=== PATIENT | female | born 1960 | race Two or more races ===

== ENCOUNTER 2016-06-16 16:30 | Emergency (ER) | payer MEDICARE, MEDICAID ==
[~2016-06-16] VITALS: Ht 157.5 cm; Wt 77.6 kg
[2016-06-16 16:30] VITALS: BP 130/69
[~2016-06-16 16:30] MED LIST: ASPI81TA2 PO; CARV3.122 PO; GLIP5TAB13 PO; LISI10TA5 PO; PREG25CA PO; TRAM50TA2 PO
[2016-06-16] MEDS ORDERED: TDAP [DIPH/PERTUSSIS/TET] 0.5 ML VIAL IM ONE ×2 (17:30→17:39)
== END 2016-06-16 18:00 | disposition home or self-care (01) ==
LOC: ER 16:35
DX: S61.011A Laceration without foreign body of right thumb without damage to nail, initial encounter (principal); W26.0XXA Contact with knife, initial encounter; Y93.89 Activity, other specified; Y92.89 Other specified places as the place of occurrence of the external cause; Y99.8 Other external cause status; I10 Essential (primary) hypertension; J45.909 Unspecified asthma, uncomplicated; E11.9 Type 2 diabetes mellitus without complications; Z90.49 Acquired absence of other specified parts of digestive tract; Z90.710 Acquired absence of both cervix and uterus; F17.200 Nicotine dependence, unspecified, uncomplicated; Z88.6 Allergy status to analgesic agent
CPT/HCPCS: 12001; 90471; 90715; 99283; A4606; A6402; Z7610

== ENCOUNTER 2017-03-07 15:56 | Emergency (ER) | payer MEDICARE, MEDICAID ==
[~2017-03-07] VITALS: Ht 160 cm; Wt 81.2 kg
[2017-03-07 16:07] VITALS: BP 129/70
[2017-03-07] MEDS ORDERED: ACETAMINOPHEN ES 500 MG TABLET ONE (16:54)
[2017-03-07] MEDS ORDERED: LIDOCAINE HCL/PF 1% 30 ML SDV ONE (16:56)
[2017-03-07] MEDS ORDERED: LIDOCAINE HCL/PF 1% 30 ML VIAL TP ONE (17:00)
[2017-03-07] MEDS ORDERED: ACETAMINOPHEN ES 500 MG TABLET PO ONE (17:00)
[2017-03-07] MEDS ORDERED: INSULIN REGULAR, HUMAN 100 UNIT/ML 10 ML VIAL ONE (17:58)
[2017-03-07] MEDS ORDERED: INSULIN REGULAR, HUMAN 100 UNIT/ML 10 ML VIAL SQ ONE (18:00)
== END 2017-03-07 18:45 | disposition home or self-care (01) ==
LOC: ER 15:59
DX: L60.0 Ingrowing nail (principal); I10 Essential (primary) hypertension; E11.9 Type 2 diabetes mellitus without complications; J45.909 Unspecified asthma, uncomplicated; K74.60 Unspecified cirrhosis of liver; Z79.82 Long term (current) use of aspirin; Z90.710 Acquired absence of both cervix and uterus; Z90.49 Acquired absence of other specified parts of digestive tract
CPT/HCPCS: 11730; 82962; 96372; 99283; A4606; A6402; A6403 ×2; J1815; J3490 ×2; Z7610

== ENCOUNTER 2017-05-31 14:20 | Emergency (ER) | payer MEDICARE, MEDICAID ==
[~2017-05-31] VITALS: Ht 157.5 cm; Wt 82.6 kg
[~2017-05-31 14:20] MED LIST changes: +ASPI-1169 PO; -ASPI81TA2 PO
--- NOTE | 2017-05-31 14:32 | NUR ---
PT RREC'D TO ER C/O COUGH FOR 2 WEEKS WAS SEEN BY OWN MD VÍCTOR HUTSON . STILL COUGHING UIP BROWN .AWAITING EVALUATION BY ER PROVIDER.CHEST XRAY ORDERED VSS
--- NOTE | 2017-05-31 15:19 | NUR ---
PT. VERBALIZED UNDERSTANDING OF AFTERCARE INSTRUCTIONS.
[2017-05-31 15:20] VITALS: BP 114/64
== END 2017-05-31 15:21 | disposition home or self-care (01) ==
LOC: ER 14:22
DX: R05 Cough (principal); E11.9 Type 2 diabetes mellitus without complications; I10 Essential (primary) hypertension; J45.909 Unspecified asthma, uncomplicated; K74.60 Unspecified cirrhosis of liver; F17.200 Nicotine dependence, unspecified, uncomplicated; Z79.82 Long term (current) use of aspirin; Z88.8 Allergy status to other drugs, medicaments and biological substances; Z90.710 Acquired absence of both cervix and uterus; Z90.49 Acquired absence of other specified parts of digestive tract
CPT/HCPCS: 71045-TC; 82962-TC; A4606; Z7610

== ENCOUNTER 2018-06-20 11:46 | Emergency (ER) | payer MEDICARE, MEDICAID ==
[~2018-06-20] VITALS: Ht 162.6 cm; Wt 75.7 kg
[2018-06-20 11:59] VITALS: BP 156/77
[2018-06-20] MEDS ORDERED: KETOROLAC TROMETHAMINE INJ 60 MG/2 ML VIAL IM ONE (12:30)
[2018-06-20] MEDS ORDERED: KETOROLAC TROMETHAMINE 15 MG/ML VIAL ONE (12:33)
== END 2018-06-20 12:41 | disposition home or self-care (01) ==
LOC: ER 11:47
DX: K08.89 Other specified disorders of teeth and supporting structures (principal); R45.86 Emotional lability; I10 Essential (primary) hypertension; E11.9 Type 2 diabetes mellitus without complications; F17.200 Nicotine dependence, unspecified, uncomplicated; J45.909 Unspecified asthma, uncomplicated; Z90.49 Acquired absence of other specified parts of digestive tract; Z90.710 Acquired absence of both cervix and uterus; Z88.8 Allergy status to other drugs, medicaments and biological substances; Z88.5 Allergy status to narcotic agent; Z79.899 Other long term (current) drug therapy; Z79.82 Long term (current) use of aspirin
CPT/HCPCS: J1885

== ENCOUNTER 2018-09-07 05:11 | Emergency (ER) | payer MEDICARE, MEDICAID ==
[~2018-09-07] VITALS: Ht 165.1 cm; Wt 87.5 kg
--- NOTE | 2018-09-07 05:30 | NUR ---
PT TO ER BED 10. BIB SELF WITH AT BEDSIDE. AAOX4. AMBULATORY. NO RESP DISTRESS, BREATHING IS EVEN AND UNLABORED. PT CAME IN WITH COMPLAINT OF R EAR PAIN 10/ AN HOUR AGO. PT WAS BLEEDING COMING OUT OF HER RIGHT EAR. AWAITING MD FOR EVAL.
[2018-09-07] MEDS ORDERED: oxyCODONE/APAP (5/325 MG) 1 UDTAB TABLET ONE (05:39)
[2018-09-07] MEDS ORDERED: oxyCODONE/APAP (5/325 MG) 1 UDTAB TABLET PO ONE (06:00)
--- NOTE | 2018-09-07 06:36 | NUR ---
Patient discharged to home in stable condition. Written and verbal after care instructions given. Patient verbalizes understanding of instruction.
[2018-09-07 06:38] VITALS: BP 155/85
== END 2018-09-07 06:39 | disposition home or self-care (01) ==
LOC: ER 05:13
DX: H72.91 Unspecified perforation of tympanic membrane, right ear (principal); E11.9 Type 2 diabetes mellitus without complications; I10 Essential (primary) hypertension; J45.909 Unspecified asthma, uncomplicated; F17.200 Nicotine dependence, unspecified, uncomplicated; Z90.710 Acquired absence of both cervix and uterus; Z90.49 Acquired absence of other specified parts of digestive tract; Z88.8 Allergy status to other drugs, medicaments and biological substances; Z79.899 Other long term (current) drug therapy; Z79.82 Long term (current) use of aspirin; Z79.84 Long term (current) use of oral hypoglycemic drugs

== ENCOUNTER 2018-10-13 20:52 | Emergency (ER) | payer MEDICARE, MEDICAID ==
[~2018-10-13] VITALS: Ht 167.6 cm; Wt 88.0 kg
[2018-10-13 21:39] VITALS: BP 162/84
--- NOTE | 2018-10-13 23:50 | NUR ---
Patient discharged to home in stable condition. Written and verbal after care instructions given. Patient verbalizes understanding of instruction. Pt ambulatory with a steady gait
== END 2018-10-13 23:56 | disposition home or self-care (01) ==
LOC: ER 20:56
DX: J20.9 Acute bronchitis, unspecified (principal); J45.909 Unspecified asthma, uncomplicated; I10 Essential (primary) hypertension; E11.9 Type 2 diabetes mellitus without complications; F17.200 Nicotine dependence, unspecified, uncomplicated; Z90.710 Acquired absence of both cervix and uterus; Z90.49 Acquired absence of other specified parts of digestive tract; Z79.82 Long term (current) use of aspirin; Z88.5 Allergy status to narcotic agent

== ENCOUNTER 2019-06-01 01:30 | Inpatient (IN) | payer MEDICARE, MEDICAID ==
[~2019-06-01] VITALS: Ht 167.6 cm; Wt 40.4 kg
[2019-06-01] MEDS ORDERED: ONDANSETRON HCL/PF 4 MG/2 ML VIAL ONE (01:59)
[2019-06-01] MEDS ORDERED: LABETALOL HCL IV 100MG VIAL ONE (01:59)
[2019-06-01] MEDS ORDERED: ONDANSETRON HCL/PF 4 MG/2 ML VIAL IVP ONE (02:00)
[2019-06-01] MEDS ORDERED: LABETALOL 20 MG/4 ML VIAL IV ONE (02:00)
[2019-06-01] MEDS ORDERED: MORPHINE SULFATE INJ 4 MG/ML DISP.SYRIN ONE (02:00)
[2019-06-01] MEDS ORDERED: MORPHINE SULFATE INJ 2 MG/ML DISP.SYRIN IV ONE (02:00)
--- NOTE | 2019-06-01 02:07 | NUR ---
blood drawn and sent with pool finisher to lab for testing
--- NOTE | 2019-06-01 02:17 | NUR ---
taken to ct
[2019-06-01 02:22] LABS: BASOPHILS # (AUTO) 0.1 /CMM (0.0-0.2); BASOPHILS % (AUTO) 0.9 % (0.0-2.0); EOSINOPHILS % (AUTO) 1.9 % (0.0-6.0); HEMATOCRIT 37 % (33-45); LYMPHOCYTES # (AUTO) 1.8 /CMM (0.8-4.8); LYMPHOCYTES % (AUTO) 27.5 % (20.0-44.0); MEAN CORPUSCULAR HGB CONC 35 g/dl (31.0-36.0); MEAN CORPUSCULAR VOLUME 98 fL (82-100); MONOCYTES # (AUTO) 0.7 /CMM (0.1-1.30); MONOCYTES % (AUTO) 10.8 % (2.0-12.0); NEUTROPHILS # (AUTO) 3.9 /CMM (1.8-8.9); NEUTROPHILS % (AUTO) 58.9 % (43.0-81.0); PLATELET COUNT (AUTO) 106 /CMM (150-450); RED BLOOD CELL COUNT(AUTO) 3.76 MIL/uL (4.0-5.2); WHITE BLOOD COUNT (AUTO) 6.7 K/uL (4.3-11.0)
--- NOTE | 2019-06-01 02:22 | NUR ---
patient is bib c/o headache 1X week. aaox4. left eye is bloodshot. no sob. breathing evenly and unlabored. connected to monitor.
[2019-06-01 02:24] LABS: CALCIUM, SERUM 9.1 mg/dL (8.5-10.1); CREATININE 0.7 mg/dL (0.6-1.3); POTASSIUM 3.9 mmol/L (3.5-5.1)
--- NOTE | 2019-06-01 02:24 | NUR ---
returned from ct.
[2019-06-01 02:29] LABS: ALBUMIN 3.1 g/dL (3.4-5.0); BILIRUBIN,DIRECT 0.4 mg/dL (0.0-0.2); BILIRUBIN,TOTAL 1.7 mg/dL (0.2-1.0); TOTAL PROTEIN, SERUM 6.3 g/dL (6.4-8.2)
--- NOTE | 2019-06-01 02:38 | NUR ---
Pt is in the car sleeping waiting for her .
[2019-06-01] MEDS ORDERED: HYDROMORPHONE 1 MG/1 ML DISP.SYRIN ONE ×2 (02:54→04:00)
[2019-06-01] MEDS ORDERED: HYDROMORPHONE INJ 0.5 MG/0.5 ML SYRINGE IV ONE (03:00)
[2019-06-01] MEDS ORDERED: HYDROMORPHONE 1 MG/1 ML DISP.SYRIN IV ONE (04:00)
--- NOTE | 2019-06-01 04:57 | NUR ---
patient resting comfortably in bed 9. not in any distress. connected to the monitor. at bedside. call light within reach.
--- NOTE | 2019-06-01 05:59 | NUR ---
PANEL PAGED PER ER MD ORDER.
--- NOTE | 2019-06-01 06:19 | NUR ---
LINDSEY NEGRO TALKING TO MARLENY LANZA ERGARDING PT ADMISSION.
--- NOTE | 2019-06-01 06:55 | NUR ---
PATIENT SLEEPING COMFORTABLY IN BED 9. EASILY AROUSED THROUGH TACTILE AND VERBAL STIMULI. NOT IN ANY DISTRESS. BREATHING EVENLY AND UNLABORED. CONNECTED TO MONITOR.
[2019-06-01] MEDS ORDERED: MAG HYDROX/AL HYDROX/SIMETH 30 ML UDC PO PRN (07:00)
[2019-06-01] MEDS ORDERED: ONDANSETRON HCL/PF 4 MG/2 ML VIAL IVP PRN (07:00)
[2019-06-01] MEDS ORDERED: ACETAMINOPHEN 325 MG TABLET PO PRN (07:00)
[2019-06-01] MEDS ORDERED: Z GUARD REMEDY 2 OZ OINT TP PRN (07:00)
[2019-06-01] MEDS ORDERED: DEXTROSE 50%-WATER 50 ML DISP.SYRIN IV PRN (07:00)
[2019-06-01] MEDS ORDERED: MAGNESIUM HYDROXIDE 30 ML UDC PO PRN (07:00)
[2019-06-01] MEDS ORDERED: HYDROCODONE/APAP 5/325MG 1 EACH TABLET PO PRN (07:00)
--- NOTE | 2019-06-01 07:20 | NUR ---
REPORT GIVEN TO EILEEN KENYON FOR KRISTYN.
--- NOTE | 2019-06-01 07:49 | NUR ---
REPORT GIVEN TO SUGEY KENYON FOR KRISTYN.
[2019-06-01 08:00] VITALS: BP 144/88
--- NOTE | 2019-06-01 08:02 | NUR ---
Assumed care report given by Maria Isabel per report report given to Jeremy to bring patient to 119 now ,brynn maldonado monitor RN an CUT LACE MACHINE OPERATOR aware patient non distress
[2019-06-01] MEDS: BLOOD SUGAR DIAGNOSTIC 1 EACH STRIP IN SCH ×4 (08:56→21:19)
--- NOTE | 2019-06-01 10:00 | NUR ---
SENIOR QA ANALYST NOTES - OPENING . PATIENT A/O X4 COOPERATIVE WITH CARE. PATIENT IS IN ROOM AIR TOLERATING ROOM AIR AT 97% PATIENT SHOWS NO SIGNS OF SOB, NO ACUTE RESPIRATORY DISTRESS. PATIENT DOES COMPLAIN OF HEADACHE. DURING NURO CHECKS PATIENT LEFT SIDE IS WEAK. UNABLE TO HOLD UP ARM FOR 10 SECS. WELL LEG UNABLE TO LEFT LEG UP .PATIENT CANNOT FEEL TOUCH ON THE LEFT SIDE OF BODY. SKIN IS IN TACT. RFA 20# R HAND 20# BED LOCKED LOWEST POSITION CALL LIGHT WITH IN REACH . ALL SAFETY MEASURE IMPLEMENTED PER HOSPITAL POLICY
[2019-06-01] MEDS: ASPIRIN 81 MG TAB.CHEW PO SCH (10:06)
[2019-06-01] MEDS: PREGABALIN 25 MG CAPSULE PO SCH (10:06)
[2019-06-01] MEDS: LISINOPRIL (10MG) 10 MG TABLET PO SCH (10:06)
[2019-06-01] MEDS: CARVEDILOL 3.125 MG TABLET PO SCH (10:13)
[2019-06-01] MEDS ORDERED: SUCR1ORA6 PO (11:02)
[2019-06-01] MEDS ORDERED: INSU100V7 SQ (11:02)
[2019-06-01] MEDS ORDERED: [UNRECOGNIZED DRUG - CODE] PO (11:02)
[2019-06-01] MEDS ORDERED: RIFA550T PO (11:02)
[2019-06-01] MEDS ORDERED: ZOLP5TAB8 PO (11:02)
[2019-06-01] MEDS ORDERED: LACT10SO4 PO (11:02)
[2019-06-01] MEDS ORDERED: LEVO100T9 PO (11:02)
[2019-06-01] MEDS ORDERED: PRAV20TA4 PO (11:02)
[2019-06-01] MEDS ORDERED: HYDR-4384 PO (11:03)
[2019-06-01] MEDS ORDERED: INSU100V27 SQ (11:05)
[2019-06-01] MEDS ORDERED: COLC0.6C3 PO (11:08)
[2019-06-01 12:00] VITALS: BP 139/79
[2019-06-01 16:00] VITALS: BP 139/69
--- NOTE | 2019-06-01 16:03 | NUR ---
LIFE SKILLS COORDINATOR VOLUNTEER NOTES - FAMILY PER FAMILY REQUEST - DIFFERENT NURSE .
--- NOTE | 2019-06-01 16:10 | NUR ---
EDUCATION REPORTER NOTES RECEIVED PATIENT FROM EILEEN KENYON. PATIENT A/OX 4 IN BED AWAKE. AT THE BED SIDE. NO SOB OR DISCOMFORT NOTED AT THIS TIME. CALL LIGHT WITHIN REACH BED AT THE LOWEST POSITION LOCKED.
[2019-06-01] MEDS: INSULIN REGULAR, HUMAN 100 UNIT/ML 3 ML VIAL SQ PRN ×2 (17:54→23:38)
--- NOTE | 2019-06-01 19:15 | NUR ---
RN OPENING NOTE RECEIVED PATIENT IN BED RESTING WITH HOB ELEVATED. A&O X4. BREATHING IS EVEN AND NON LABORED. NO SOB NOTED AT THIS TIME. FAMILY IS AT BEDSIDE AT THIS TIME. CALL LIGHT IS WITHIN EASY REACH. WILL CONTINUE TO MONITOR.
--- NOTE | 2019-06-01 19:30 | NUR ---
SHIPFITTERS SUPERVISOR NOTES PATIENT IN BED SITTING A/OX4 AWAKE. NO SOB OR DISCOMFORT NOTED. ALL NEEDS ATTENDED. CALL LIGHT WITHIN REACH. NO MAJOR CHANGES DURING SHIFT. BED AT THE LOWEST POSITION LOCKED. ENDORSED TO SNAKE CHARMER NURSE FOR KRISTYN.
[2019-06-01] MEDS ORDERED: ZOLPIDEM TARTRATE 5 MG TABLET PO PRN (20:30)
[2019-06-01] MEDS ORDERED: ATORVASTATIN 10 MG TABLET PO SCH (21:00)
[2019-06-01 21:39] VITALS: BP 116/58
[2019-06-01] MEDS ORDERED: INSULIN GLARGINE, 100 UNIT/ML CARTRIDGE SQ SCH (22:00)
[2019-06-02 04:00] VITALS: BP 111/50
--- NOTE | 2019-06-02 07:20 | NUR ---
MOTORBOAT MECHANIC HELPER NOTES, PATIENT IN BED AWAKE AT THIS TIME A/O X4 ABLE TO VERBALIZED NEEDS, AT ROOM AIR BREATHING EVEN AND UNLABORED, NO SOB OR DISCOMFORT NOTED, ALL NEEDS ATTENDED, BILATERAL S/R OF BED U FOR POSITIONING, CALL LIGHT WITHIN REACH, BED LOCKED. AD IN LOWEST POSITION, WILL CONTINUE TO MONITOR CLOSELY.
--- NOTE | 2019-06-02 07:20 | NUR ---
RN CLOSING NOTE PATIENT IS IN BED RESTING WITH HOB ELEVATED. IN NO APPARENT DISTRESS AT THIS TIME. A&O X4. CALL LIGHT IS WITHIN EASY REACH. ENDORSED TO AM SHIFT RN FOR CONTINUATION OF CARE.
[2019-06-02 07:25] LABS: THYROID STIMULATING HORMONE 0.916 uIU/mL (0.358-3.74)
[2019-06-02] MEDS ORDERED: LEVOTHYROXINE SODIUM 100 MCG TABLET PO SCH (07:30)
[2019-06-02 07:34] LABS: BASOPHILS % (AUTO) 0.6 % (0.0-2.0); EOSINOPHILS % (AUTO) 4.8 % (0.0-6.0); HEMATOCRIT 36 % (33-45); HEMOGLOBIN 12.5 g/dL (11.5-14.8); LYMPHOCYTES # (AUTO) 1.8 /CMM (0.8-4.8); LYMPHOCYTES % (AUTO) 33.9 % (20.0-44.0); MEAN CORPUSCULAR HGB CONC 35 g/dl (31.0-36.0); MEAN CORPUSCULAR VOLUME 98 fL (82-100); MONOCYTES # (AUTO) 0.6 /CMM (0.1-1.30); MONOCYTES % (AUTO) 11.8 % (2.0-12.0); NEUTROPHILS # (AUTO) 2.7 /CMM (1.8-8.9); NEUTROPHILS % (AUTO) 48.9 % (43.0-81.0); PLATELET COUNT (AUTO) 102 /CMM (150-450); RED BLOOD CELL COUNT(AUTO) 3.63 MIL/uL (4.0-5.2); WHITE BLOOD COUNT (AUTO) 5.4 K/uL (4.3-11.0)
[2019-06-02 07:51] LABS: CREATININE 0.6 mg/dL (0.6-1.3); MAGNESIUM 1.7 mg/dL (1.8-2.4); PHOSPHORUS 3.7 mg/dL (2.5-4.9); POTASSIUM 3.5 mmol/L (3.5-5.1)
[2019-06-02] MEDS: BLOOD SUGAR DIAGNOSTIC 1 EACH STRIP IN SCH ×2 (07:59→12:58)
[2019-06-02 08:00] VITALS: BP 137/68
[2019-06-02] MEDS: INSULIN REGULAR, HUMAN 100 UNIT/ML 3 ML VIAL SQ PRN ×2 (08:02→13:00)
[2019-06-02] MEDS: LACTULOSE 10 G/15 ML UDC (PYXIS) PO SCH ×2 (08:16→13:28)
[2019-06-02] MEDS: ASPIRIN 81 MG TAB.CHEW PO SCH (08:16)
[2019-06-02] MEDS: CARVEDILOL 3.125 MG TABLET PO SCH (08:17)
[2019-06-02 08:18] VITALS: BP 137/68
[2019-06-02] MEDS: LISINOPRIL (10MG) 10 MG TABLET PO SCH (08:18)
[2019-06-02] MEDS ORDERED: PENICILLAMINE PO SCH (09:00)
[2019-06-02] MEDS: PREGABALIN 25 MG CAPSULE PO SCH (09:00)
[2019-06-02] MEDS ORDERED: SUCRALFATE 1 G/10 ML UDC PO SCH (09:00)
[2019-06-02] MEDS ORDERED: COLCHICINE 0.6 MG TABLET PO SCH (09:00)
[2019-06-02] MEDS ORDERED: RIFAXIMIN 550 MG TABLET PO SCH (09:00)
--- NOTE | 2019-06-02 10:00 | NUR ---
RN NOTES, SEEN PATIENT AT THIS TIME BY DR ALCALA.
[2019-06-02] MEDS: Magnesium 1GM/D5W 100ML PREMIX 100 ML IV SCH ×2 (11:53→13:27)
--- NOTE | 2019-06-02 12:20 | NUR ---
RN NOTES, ENDORSED PATIENT TO KOSTAS MACIAS FOR CONTINUATION OF CARE
[2019-06-02] MEDS ORDERED: CARV3.12 PO (14:07)
--- NOTE | 2019-06-02 18:00 | NUR ---
MIS MANAGER NOTES PATIENT DISCHARGED, TRANSFERS PATIENT, IV REMOVED, BELONGINGS RETURNED. PATIENT IN STABLE CONDITION. PATIENT TRANSFERRED BY WHEELCHAIR SAFELY TO [facility].
[2019-06-03] MEDS ORDERED: PANTOPRAZOLE 40 MG TABLET.DR PO SCH (07:30)
== END 2019-06-03 00:41 | disposition home or self-care (01) | DRG 282 ==
LOC: ER 01:31 → TELE1 05:48
PROVIDERS: ADMIT Internal Medicine; ATTEND Internal Medicine
DX: I16.0 Hypertensive urgency (principal); I21.A1 Myocardial infarction type 2; J45.909 Unspecified asthma, uncomplicated; Z79.82 Long term (current) use of aspirin; E11.9 Type 2 diabetes mellitus without complications; Z79.84 Long term (current) use of oral hypoglycemic drugs; E03.9 Hypothyroidism, unspecified; M06.9 Rheumatoid arthritis, unspecified; I10 Essential (primary) hypertension; K74.60 Unspecified cirrhosis of liver; Z90.710 Acquired absence of both cervix and uterus; Z90.49 Acquired absence of other specified parts of digestive tract; Z83.3 Family history of diabetes mellitus; Z79.899 Other long term (current) drug therapy; Z88.8 Allergy status to other drugs, medicaments and biological substances; D69.59 Other secondary thrombocytopenia; E66.9 Obesity, unspecified; E83.42 Hypomagnesemia; K76.0 Fatty (change of) liver, not elsewhere classified; Z76.82 Awaiting organ transplant status
CPT/HCPCS: 36415; 70450-TC; 71045-TC; 76705-TC; 76770-TC; 80048-TC; 80061-TC; 80076-TC; 82962-TC; 83735-TC; 84100-TC; 84443-TC; 84484-TC; 85025-TC; 85730-TC; 87081-TC; 93307-TC; G0378; J1170; J1815; J2270; J2405; J3475; J3490

== ENCOUNTER 2019-06-10 10:38 | Outpatient (CLI) | payer MEDICARE, MEDICAID ==
[~2019-06-10 10:38] MED LIST changes: -ASPI-1169 PO; +CARV3.12 PO; -CARV3.122 PO; +COLC0.6C3 PO; -GLIP5TAB13 PO; +HYDR-4384 PO; +INSU100V27 SQ; +INSU100V7 SQ; +LACT10SO4 PO; +LEVO100T9 PO; +PRAV20TA4 PO; -PREG25CA PO; +RIFA550T PO; +SUCR1ORA6 PO; -TRAM50TA2 PO; +ZOLP5TAB8 PO; +[UNRECOGNIZED DRUG - CODE] PO
== END 2019-06-10 23:59 | disposition home or self-care (01) ==
LOC: MSC 10:38
PROVIDERS: ATTEND Internal Medicine
DX: I10 Essential (primary) hypertension (principal); R51 Headache; K74.60 Unspecified cirrhosis of liver; Z76.82 Awaiting organ transplant status; J45.909 Unspecified asthma, uncomplicated; Z99.81 Dependence on supplemental oxygen; E11.9 Type 2 diabetes mellitus without complications; Z79.4 Long term (current) use of insulin; M06.9 Rheumatoid arthritis, unspecified; E03.9 Hypothyroidism, unspecified; Z95.828 Presence of other vascular implants and grafts; E66.8 Other obesity; D69.59 Other secondary thrombocytopenia; Z79.899 Other long term (current) drug therapy

== ENCOUNTER 2019-08-04 11:18 | Emergency (ER) | payer MEDICARE, MEDICAID ==
[~2019-08-04] VITALS: Ht 160 cm; Wt 88.9 kg
[2019-08-04 11:25] VITALS: BP 153/68
--- NOTE | 2019-08-04 11:25 | NUR ---
URINE SPECIMEN COLLECTED AND SENT TO LAB
--- NOTE | 2019-08-04 11:28 | NUR ---
AT BEDSIDE FOR EVAL.
[2019-08-04 11:53] LABS: APPEARANCE,URINE Cloudy (CLEAR); BILIRUBIN,URINE Negative (NEGATIVE); BLOOD, URINE Large Ery/uL (NEGATIVE); COLOR,URINE Yellow (YELLOW); KETONES,URINE Negative (NEGATIVE); LEUKOCYTE ESTERASE ,URINE Large (NEGATIVE); NITRITE, URINE Positive (NEGATIVE); PH,URINE 6.5 (5.0-8.0); PROTEIN,URINE 100 mg/dl (NEGATIVE); UGLUCOSE Negative (NEGATIVE); UROBILINOGEN,URINE 0.2 EU/dL (0.2)
[2019-08-04 12:07] LABS: BACTERIA,URINE 1+ /HPF (None Seen); SQUAMOUS EPITHELIAL CELL,UR Few /HPF (None Seen)
--- NOTE | 2019-08-04 12:11 | NUR ---
Patient discharged to home in stable condition. Written and verbal after care instructions given. Patient verbalizes understanding of instruction.
== END 2019-08-04 12:12 | disposition home or self-care (01) ==
LOC: ER 11:18
DX: N39.0 Urinary tract infection, site not specified (principal); I10 Essential (primary) hypertension; J45.909 Unspecified asthma, uncomplicated; E11.9 Type 2 diabetes mellitus without complications; F17.200 Nicotine dependence, unspecified, uncomplicated; Z90.49 Acquired absence of other specified parts of digestive tract; Z98.890 Other specified postprocedural states; Z88.8 Allergy status to other drugs, medicaments and biological substances; Z79.899 Other long term (current) drug therapy; Z79.4 Long term (current) use of insulin
CPT/HCPCS: 81000-TC; 87086-TC

== ENCOUNTER 2020-07-16 02:15 | Emergency (ER) | payer MEDICARE, OTHER ==
[~2020-07-16] VITALS: Ht 160 cm; Wt 90.3 kg
[2020-07-16 02:15] VITALS: BP 128/70
[~2020-07-16 02:15] MED LIST changes: +LISI10TA29 PO; -LISI10TA5 PO
[2020-07-16] MEDS ORDERED: AMOXICILLIN TRIHYDRATE 500 MG CAPSULE PO ONE (02:30)
[2020-07-16] MEDS ORDERED: IBUPROFEN 400 MG TABLET PO ONE (02:30)
[2020-07-16] MEDS ORDERED: AMOX500C2 PO (02:31)
[2020-07-16] MEDS ORDERED: IBUP-1957 PO (02:31)
[2020-07-16] MEDS ORDERED: IBUPROFEN 400 MG TABLET ONE (02:35)
[2020-07-16] MEDS ORDERED: AMOXICILLIN TRIHYDRATE 250 MG CAPSULE ONE (02:35)
== END 2020-07-16 02:46 | disposition home or self-care (01) ==
LOC: ER 02:17
DX: H66.92 Otitis media, unspecified, left ear (principal); I10 Essential (primary) hypertension; J45.909 Unspecified asthma, uncomplicated; E11.9 Type 2 diabetes mellitus without complications; F17.200 Nicotine dependence, unspecified, uncomplicated; Z90.710 Acquired absence of both cervix and uterus; Z90.49 Acquired absence of other specified parts of digestive tract; Z88.5 Allergy status to narcotic agent; Z88.8 Allergy status to other drugs, medicaments and biological substances; Z88.6 Allergy status to analgesic agent; Z79.4 Long term (current) use of insulin; Z79.899 Other long term (current) drug therapy

== ENCOUNTER 2020-08-08 23:50 | Emergency (ER) | payer MEDICARE, OTHER ==
[~2020-08-08] VITALS: Ht 160 cm; Wt 92.5 kg
[~2020-08-08 23:50] MED LIST changes: +AMOX500C2 PO; +IBUP-1957 PO
--- NOTE | 2020-08-09 00:07 | NUR ---
BIBSELF FROM HOME C/O HIGH BG >500. TOOK LANTUS 74 AND HUMALOG 44 X1HR AGO BG 454 UPON TRIAGE, PT TO BED 10, AAOX4, DENIES SOB/CP .VSS, NOT IN ANY DISTRESS, PENDING ER PROVIDER ERVIN
[2020-08-09] MEDS ORDERED: ONDANSETRON HCL/PF 4 MG/2 ML VIAL ONE (00:29)
[2020-08-09] MEDS ORDERED: ONDANSETRON HCL/PF 4 MG/2 ML VIAL IVP ONE (00:30)
[2020-08-09] MEDS ORDERED: IV NS 0.9% 1,000 ML BAG IV ONE (00:30)
[2020-08-09] MEDS ORDERED: INSULIN REGULAR, HUMAN 100 UNIT/ML 10 ML VIAL IV ONE (00:30)
[2020-08-09] MEDS ORDERED: INSULIN REGULAR, HUMAN 100 UNIT/ML 10 ML VIAL ONE (00:31)
[2020-08-09 00:35] LABS: BILIRUBIN,URINE NEGATIVE (NEGATIVE); COLOR,URINE YELLOW (YELLOW); LEUKOCYTE ESTERASE ,URINE NEGATIVE (NEGATIVE); NITRITE, URINE NEGATIVE (NEGATIVE); PROTEIN,URINE NEGATIVE (NEGATIVE); UGLUCOSE >=1000 mg/dL (NEGATIVE); UROBILINOGEN,URINE 0.2 EU/dL (0.2)
[2020-08-09 00:36] LABS: BASOPHILS % (AUTO) 0.6 % (0.0-2.0); EOSINOPHILS % (AUTO) 0.1 % (0.0-6.0); HEMATOCRIT 39 % (33-45); HEMOGLOBIN 13.6 g/dL (11.5-14.8); LYMPHOCYTES # (AUTO) 1.2 /CMM (0.8-4.8); LYMPHOCYTES % (AUTO) 18.1 % (20.0-44.0); MEAN CORPUSCULAR HGB CONC 35 g/dl (31.0-36.0); MEAN CORPUSCULAR VOLUME 97 fL (82-100); MONOCYTES # (AUTO) 0.1 /CMM (0.1-1.30); MONOCYTES % (AUTO) 1.6 % (2.0-12.0); NEUTROPHILS # (AUTO) 5.2 /CMM (1.8-8.9); NEUTROPHILS % (AUTO) 79.6 % (43.0-81.0); PLATELET COUNT (AUTO) 158 /CMM (150-450); RED BLOOD CELL COUNT(AUTO) 4.05 MIL/uL (4.0-5.2); WHITE BLOOD COUNT (AUTO) 6.6 K/uL (4.3-11.0)
[2020-08-09 00:49] LABS: BACTERIA,URINE None seen /HPF (None Seen); RBC,URINE 0-2 /HPF (0-2); SQUAMOUS EPITHELIAL CELL,UR Few /HPF (None Seen); WBC,URINE 0-2 /HPF (0-3)
[2020-08-09 00:54] LABS: ALBUMIN 3.2 g/dL (3.4-5.0); BILIRUBIN,DIRECT 0.3 mg/dL (0.0-0.2); BILIRUBIN,TOTAL 0.9 mg/dL (0.2-1.0); CALCIUM, SERUM 8.9 mg/dL (8.5-10.1); CREATININE 0.9 mg/dL (0.6-1.3); POTASSIUM 4.2 mmol/L (3.5-5.1); TOTAL PROTEIN, SERUM 6.6 g/dL (6.4-8.2)
--- NOTE | 2020-08-09 01:09 | NUR ---
BG 460
--- NOTE | 2020-08-09 02:41 | NUR ---
PER DR PLAZA, REPEAT BG AT 0330.
--- NOTE | 2020-08-09 03:38 | NUR ---
Patient discharged to home in stable condition. Written and verbal after care instructions given. Patient verbalizes understanding of instruction. IV removed. Catheter intact and site benign. Pressure and 4x4 applied to site. No bleeding noted.
[2020-08-09 03:39] VITALS: BP 163/93
== END 2020-08-09 03:39 | disposition home or self-care (01) ==
LOC: ER 23:50
DX: E11.65 Type 2 diabetes mellitus with hyperglycemia (principal); I10 Essential (primary) hypertension; J45.909 Unspecified asthma, uncomplicated; Z71.6 Tobacco abuse counseling; Z90.710 Acquired absence of both cervix and uterus; Z90.49 Acquired absence of other specified parts of digestive tract; Z88.5 Allergy status to narcotic agent; Z88.6 Allergy status to analgesic agent; Z79.4 Long term (current) use of insulin; Z79.899 Other long term (current) drug therapy
CPT/HCPCS: 36415; 80048; 80076; 81001; 82010; 82962 ×2; 83690; 85025; 85730; 93005; 96361; 96374; 96375; 99284; 99406; J1815; J2405; J7030

== ENCOUNTER 2020-12-26 18:03 | Emergency (ER) | payer MEDICARE, OTHER ==
[~2020-12-26] VITALS: Ht 157.5 cm; Wt 90.7 kg
--- NOTE | 2020-12-26 18:35 | NUR ---
THE PATIENT BIBS WITH C/O FEVER AND NASAL CONGESTION X 3 DAYS. TOOK TYLENOL 2 HOURS AGO. IN ROOM AIR AND DENIES SOB. RESPIRATION REGULAR AND UNLABORED. NO COUGH NOTED. DENIES PAIN. WILL CONTINUE TO MONITOR THE PATIENT.
[2020-12-26 18:38] VITALS: BP 114/65
--- NOTE | 2020-12-26 19:02 | NUR ---
RADIOLOGY AT BEDSIDE FOR CHEST XRAY.
--- NOTE | 2020-12-26 19:05 | NUR ---
SWABBED FOR COVID. SPECIMEN SENT TO LAB.
[2020-12-26] MEDS ORDERED: ACET-2605 PO (19:10)
[2020-12-26] MEDS ORDERED: AMOX-430 PO (19:10)
--- NOTE | 2020-12-26 19:36 | NUR ---
pt is medically stbale for d/c per el. Filippo DALTON will call pt with her covid result. Patient discharged to home in stable condition. Rx and Written and verbal after care instructions given. Patient verbalizes understanding of instruction.
== END 2020-12-26 19:38 | disposition home or self-care (01) ==
LOC: ER 18:20
DX: J01.90 Acute sinusitis, unspecified (principal); Z20.822 Contact with and (suspected) exposure to COVID-19; E11.9 Type 2 diabetes mellitus without complications; Z79.4 Long term (current) use of insulin; I10 Essential (primary) hypertension; K74.60 Unspecified cirrhosis of liver; F17.200 Nicotine dependence, unspecified, uncomplicated; Z90.49 Acquired absence of other specified parts of digestive tract; Z90.710 Acquired absence of both cervix and uterus; J45.909 Unspecified asthma, uncomplicated
CPT/HCPCS: 71045-TC; C9803

== ENCOUNTER 2021-02-08 13:01 | Emergency (ER) | payer MEDICARE, OTHER ==
[~2021-02-08] VITALS: Ht 160 cm; Wt 92.5 kg
[~2021-02-08 13:01] MED LIST changes: +ACET-2605 PO; +AMOX-430 PO
[2021-02-08 13:06] VITALS: BP 128/76
--- NOTE | 2021-02-08 13:13 | NUR ---
THE PATIENT BIBS FOR C/O SINUS CONGESTION. IN ROOM AIR AND DENIES SOB. RESPIRATION REGULAR AND UNLABORED. DENIES PAIN. WILL CONTINUE TO MONITOR THE PATIENT.
[2021-02-08] MEDS ORDERED: AMOX500C2 PO (13:19)
--- NOTE | 2021-02-08 13:46 | NUR ---
Patient discharged to home in stable condition. Written and verbal after care instructions given. Patient verbalizes understanding of instruction.
== END 2021-02-08 13:46 | disposition home or self-care (01) ==
LOC: ER 13:26
DX: J02.9 Acute pharyngitis, unspecified (principal); I10 Essential (primary) hypertension; J45.909 Unspecified asthma, uncomplicated; E11.9 Type 2 diabetes mellitus without complications; F17.200 Nicotine dependence, unspecified, uncomplicated; Z90.710 Acquired absence of both cervix and uterus; Z90.49 Acquired absence of other specified parts of digestive tract; Z88.5 Allergy status to narcotic agent; Z88.6 Allergy status to analgesic agent; Z79.4 Long term (current) use of insulin; Z79.899 Other long term (current) drug therapy

== ENCOUNTER 2021-04-13 12:48 | Emergency (ER) | payer MEDICARE, MEDICAID ==
[~2021-04-13] VITALS: Ht 160 cm; Wt 92.5 kg
--- NOTE | 2021-04-13 13:09 | NUR ---
PT BIBSELF FROM HOME c/o cough, chills, fever x 3 days. A/OX4. TOLERATING R/A AT 99%. CONNECTED PT TO POX AND MONITOR. PT DENIES TAKING MEDS PRIOR TO ER VISIT.
--- NOTE | 2021-04-13 13:20 | NUR ---
SPECIAL INSPECTOR AT PT'S BEDSIDE
--- NOTE | 2021-04-13 13:51 | NUR ---
COVID SWAB DONE AND SENT TO THE LAB
[2021-04-13] MEDS ORDERED: AZIT250T PO (14:15)
[2021-04-13 14:58] VITALS: BP 116/76
--- NOTE | 2021-04-13 14:58 | NUR ---
Patient discharged to home in stable condition. RX Written and verbal after care instructions given. Patient verbalizes understanding of instruction. PT ambulatory with a steady gait.
== END 2021-04-13 14:59 | disposition home or self-care (01) ==
LOC: ER 13:09
DX: U07.1 COVID-19 (principal); J20.8 Acute bronchitis due to other specified organisms; J45.909 Unspecified asthma, uncomplicated; I10 Essential (primary) hypertension; Z90.49 Acquired absence of other specified parts of digestive tract; Z90.710 Acquired absence of both cervix and uterus; E11.9 Type 2 diabetes mellitus without complications; Z79.4 Long term (current) use of insulin; F17.200 Nicotine dependence, unspecified, uncomplicated
CPT/HCPCS: 71045-TC; C9803

== ENCOUNTER 2021-05-10 05:58 | Emergency (ER) | payer MEDICARE, OTHER ==
[~2021-05-10] VITALS: Ht 160 cm; Wt 92.5 kg
[~2021-05-10 05:58] MED LIST changes: +AZIT250T PO
--- NOTE | 2021-05-10 06:15 | NUR ---
BIBS C/O SORE THROAT X2DAYS. PT AFEBRILE BREATHING EVEN AND UNLABORED 100% RA. PLACED ON MONITOR AND PULSE OX AND ALL V/S STABLE. MD WAS AT THE BEDSE FOR EVAL.
[2021-05-10] MEDS ORDERED: AMOXICILLIN TRIHYDRATE 250 MG CAPSULE ONE (06:24)
[2021-05-10] MEDS ORDERED: AMOXICILLIN TRIHYDRATE 500 MG CAPSULE PO ONE (06:30)
[2021-05-10] MEDS ORDERED: AMOX500C2 PO (06:32)
[2021-05-10 06:35] VITALS: BP 102/62
--- NOTE | 2021-05-10 06:35 | NUR ---
Patient discharged to home in stable condition. Written and verbal after care instructions given. Patient verbalizes understanding of instruction.
== END 2021-05-10 06:39 | disposition home or self-care (01) ==
LOC: ER 06:05
DX: J02.9 Acute pharyngitis, unspecified (principal); Z20.822 Contact with and (suspected) exposure to COVID-19; I10 Essential (primary) hypertension; J45.909 Unspecified asthma, uncomplicated; F17.200 Nicotine dependence, unspecified, uncomplicated; E11.9 Type 2 diabetes mellitus without complications; Z79.4 Long term (current) use of insulin; Z88.6 Allergy status to analgesic agent; Z90.49 Acquired absence of other specified parts of digestive tract; M06.9 Rheumatoid arthritis, unspecified; K74.60 Unspecified cirrhosis of liver
CPT/HCPCS: 86403-TC; 87070-TC; C9803; U0003

== ENCOUNTER 2021-12-29 07:46 | Emergency (ER) | payer MEDICARE, OTHER ==
[~2021-12-29] VITALS: Ht 160 cm; Wt 90.7 kg
--- NOTE | 2021-12-29 08:13 | NUR ---
DR AN AT BEDSIDE FOR EVAL
[2021-12-29] MEDS ORDERED: ACETAMINOPHEN 325 MG TABLET ONE (08:33)
--- NOTE | 2021-12-29 08:37 | NUR ---
INTERN BRAND AT BEDSIDE FOR BLOOD DRAW
--- NOTE | 2021-12-29 08:39 | NUR ---
PT TAKEN TO RADIOLOGY
[2021-12-29 08:45] LABS: BASOPHILS # (AUTO) 0.1 K/uL (0.0-0.2); BASOPHILS % (AUTO) 0.8 % (0.0-2.0); EOSINOPHILS % (AUTO) 3.6 % (0.0-6.0); HEMATOCRIT 39 % (33-45); HEMOGLOBIN 13.6 g/dL (11.5-14.8); LYMPHOCYTES # (AUTO) 2.1 K/uL (0.8-4.8); LYMPHOCYTES % (AUTO) 30.8 % (20.0-44.0); MEAN CORPUSCULAR HGB CONC 35 g/dl (31.0-36.0); MEAN CORPUSCULAR VOLUME 95 fL (82-100); MONOCYTES # (AUTO) 0.7 K/uL (0.1-1.30); MONOCYTES % (AUTO) 10.5 % (2.0-12.0); NEUTROPHILS # (AUTO) 3.7 K/uL (1.8-8.9); NEUTROPHILS % (AUTO) 54.3 % (43.0-81.0); PLATELET COUNT (AUTO) 176 K/uL (150-450); RED BLOOD CELL COUNT(AUTO) 4.07 MIL/uL (4.0-5.2); WHITE BLOOD COUNT (AUTO) 6.9 K/uL (4.3-11.0)
--- NOTE | 2021-12-29 08:47 | NUR ---
BACK FROM CT VIA WHEELCHAIR
[2021-12-29 08:54] LABS: CALCIUM, SERUM 8.4 mg/dL (8.5-10.1); CREATININE 1.1 mg/dL (0.6-1.3); POTASSIUM 4.4 mmol/L (3.5-5.1)
[2021-12-29] MEDS: ACETAMINOPHEN 325 MG TABLET PO ONE (09:00)
[2021-12-29] MEDS ORDERED: DOXY-326 PO (09:34)
[2021-12-29] MEDS ORDERED: OXYM15MI4 NS (09:34)
[2021-12-29 09:45] VITALS: BP 130/62
--- NOTE | 2021-12-29 09:45 | NUR ---
Patient discharged to home in stable condition. Written and verbal after care instructions given. Patient verbalizes understanding of instruction.
== END 2021-12-29 09:46 | disposition home or self-care (01) ==
LOC: ER 07:55
DX: J01.00 Acute maxillary sinusitis, unspecified (principal); J02.9 Acute pharyngitis, unspecified; R51.9 Headache, unspecified; I10 Essential (primary) hypertension; J45.909 Unspecified asthma, uncomplicated; E11.9 Type 2 diabetes mellitus without complications; Z90.710 Acquired absence of both cervix and uterus; Z90.49 Acquired absence of other specified parts of digestive tract; Z88.8 Allergy status to other drugs, medicaments and biological substances; Z79.899 Other long term (current) drug therapy
CPT/HCPCS: 36415; 70450-TC; 80048-TC; 85025-TC

== ENCOUNTER 2022-03-25 23:20 | Emergency (ER) | payer MEDICARE, OTHER ==
[~2022-03-25] VITALS: Ht 160 cm; Wt 88.9 kg
[~2022-03-25 23:20] MED LIST changes: +DOXY-326 PO; +OXYM15MI4 NS
[2022-03-25 23:23] VITALS: BP 136/74
[2022-03-25] MEDS ORDERED: CEPH500T PO (23:34)
[2022-03-25] MEDS ORDERED: CEPHALEXIN MONOHYDRATE 500 MG CAPSULE PO ONE (23:36)
[2022-03-26] MEDS ORDERED: CEPHALEXIN MONOHYDRATE 500 MG CAPSULE PO ONE
== END 2022-03-25 23:56 | disposition home or self-care (01) ==
LOC: ER 23:24
DX: L08.9 Local infection of the skin and subcutaneous tissue, unspecified (principal); I10 Essential (primary) hypertension; J45.909 Unspecified asthma, uncomplicated; E11.9 Type 2 diabetes mellitus without complications; F17.200 Nicotine dependence, unspecified, uncomplicated; Z90.710 Acquired absence of both cervix and uterus; Z90.49 Acquired absence of other specified parts of digestive tract; Z88.8 Allergy status to other drugs, medicaments and biological substances; Z79.899 Other long term (current) drug therapy

== ENCOUNTER 2023-03-05 04:58 | Emergency (ER) | payer MEDICARE, OTHER ==
[~2023-03-05] VITALS: Ht 160 cm; Wt 89.4 kg
[~2023-03-05 04:58] MED LIST changes: +CEPH500T PO
[2023-03-05 05:41] VITALS: BP 102/62; TEMP 99; O2SAT 97
[2023-03-05] MEDS ORDERED: AZIT250T13 PO (06:09)
[2023-03-05] MEDS ORDERED: FLUT16SP16 BNOSTRILS (06:09)
[2023-03-05] MEDS ORDERED: PSEU120T83 PO (06:09)
== END 2023-03-05 06:17 | disposition home or self-care (01) ==
LOC: ER 05:14
DX: J01.90 Acute sinusitis, unspecified (principal); I10 Essential (primary) hypertension; J45.909 Unspecified asthma, uncomplicated; E11.9 Type 2 diabetes mellitus without complications; Z90.710 Acquired absence of both cervix and uterus; Z90.49 Acquired absence of other specified parts of digestive tract; Z88.8 Allergy status to other drugs, medicaments and biological substances; Z79.4 Long term (current) use of insulin; Z79.899 Other long term (current) drug therapy

== ENCOUNTER 2023-05-13 05:43 | Emergency (ER) | payer MEDICARE, OTHER ==
[~2023-05-13] VITALS: Ht 157.5 cm; Wt 90.7 kg
[~2023-05-13 05:43] MED LIST changes: +AZIT250T13 PO; +FLUT16SP16 BNOSTRILS; +PSEU120T83 PO
[2023-05-13 07:12] LABS: APPEARANCE,URINE TURBID (CLEAR); BILIRUBIN,URINE NEGATIVE (NEGATIVE); BLOOD, URINE 2+ Ery/uL (NEGATIVE); COLOR,URINE DARK YELLOW (YELLOW); KETONES,URINE TRACE mg/dL (NEGATIVE); LEUKOCYTE ESTERASE ,URINE 3+ (NEGATIVE); NITRITE, URINE NEGATIVE (NEGATIVE); PH,URINE 6.5 (5.0-8.0); PROTEIN,URINE TRACE mg/dl (NEGATIVE); UGLUCOSE NEGATIVE (NEGATIVE)
[2023-05-13 07:17] LABS: ADD URINE CULTURE YES; BACTERIA,URINE Moderate /HPF (None Seen); SQUAMOUS EPITHELIAL CELL,UR Rare /HPF (None Seen); WBC,URINE 51-80 /HPF (0-3)
[2023-05-13] MEDS ORDERED: CEPH500C2 PO (07:41)
[2023-05-13] MEDS ORDERED: NEOM28OI22 TP (07:50)
[2023-05-13 07:57] VITALS: BP 120/68; TEMP 98.1; O2SAT 98
[2023-05-13] MEDS ORDERED: CEPHALEXIN MONOHYDRATE 500 MG CAPSULE PO ONE (08:00)
== END 2023-05-13 07:58 | disposition home or self-care (01) ==
LOC: ER 05:48
DX: T22.112A Burn of first degree of left forearm, initial encounter (principal); N39.0 Urinary tract infection, site not specified; R30.0 Dysuria; I10 Essential (primary) hypertension; J45.909 Unspecified asthma, uncomplicated; E11.9 Type 2 diabetes mellitus without complications; F17.200 Nicotine dependence, unspecified, uncomplicated; Z79.899 Other long term (current) drug therapy; Z90.49 Acquired absence of other specified parts of digestive tract; Z88.5 Allergy status to narcotic agent; Z88.1 Allergy status to other antibiotic agents; X08.8XXA Exposure to other specified smoke, fire and flames, initial encounter; Y93.89 Activity, other specified; Y92.89 Other specified places as the place of occurrence of the external cause; Y99.8 Other external cause status
CPT/HCPCS: 81001; 87086-TC

== ENCOUNTER 2023-05-19 00:34 | Emergency (ER) | payer MEDICARE, OTHER ==
[~2023-05-19] VITALS: Ht 157.5 cm; Wt 90.7 kg
[~2023-05-19 00:34] MED LIST changes: +CEPH500C2 PO; +NEOM28OI22 TP
[2023-05-19 00:51] VITALS: BP 108/65; TEMP 98.1
[2023-05-19] MEDS ORDERED: HYDROCODONE/APAP 5/325MG TABLET ONE (01:15)
[2023-05-19 01:19] VITALS: O2SAT 99
[2023-05-19] MEDS ORDERED: HYDROCODONE/APAP 5/325MG TABLET PO ONE (01:30)
== END 2023-05-19 02:19 | disposition home or self-care (01) ==
LOC: ER 00:34
DX: T22.212A Burn of second degree of left forearm, initial encounter (principal); I10 Essential (primary) hypertension; J45.909 Unspecified asthma, uncomplicated; E11.9 Type 2 diabetes mellitus without complications; Z90.710 Acquired absence of both cervix and uterus; Z90.49 Acquired absence of other specified parts of digestive tract; Z88.8 Allergy status to other drugs, medicaments and biological substances; Z79.899 Other long term (current) drug therapy; X08.8XXA Exposure to other specified smoke, fire and flames, initial encounter; Y93.89 Activity, other specified; Y92.89 Other specified places as the place of occurrence of the external cause; Y99.8 Other external cause status

== ENCOUNTER 2023-07-28 07:42 | Emergency (ER) | payer MEDICARE, OTHER ==
[~2023-07-28] VITALS: Ht 160 cm; Wt 90.7 kg
[2023-07-28] MEDS ORDERED: OSEL75CA PO (08:32)
[2023-07-28] MEDS ORDERED: PAXLOVID PO (08:32)
[2023-07-28] MEDS ORDERED: IBUP-1955 PO (08:33)
[2023-07-28 09:11] VITALS: BP 90/66; TEMP 97.5; O2SAT 97
== END 2023-07-28 09:12 | disposition home or self-care (01) ==
LOC: ER 07:45
DX: J06.9 Acute upper respiratory infection, unspecified (principal); I10 Essential (primary) hypertension; E11.9 Type 2 diabetes mellitus without complications; J45.909 Unspecified asthma, uncomplicated; E03.9 Hypothyroidism, unspecified; Z90.710 Acquired absence of both cervix and uterus; Z90.49 Acquired absence of other specified parts of digestive tract; Z88.8 Allergy status to other drugs, medicaments and biological substances; Z79.4 Long term (current) use of insulin; Z79.899 Other long term (current) drug therapy; Z20.822 Contact with and (suspected) exposure to COVID-19

== ENCOUNTER 2024-02-06 06:01 | Emergency (ER) | payer MEDICARE, OTHER ==
[~2024-02-06] VITALS: Ht 160 cm; Wt 90.7 kg
[~2024-02-06 06:01] MED LIST changes: +IBUP-1955 PO; +OSEL75CA PO; +PAXLOVID PO
[2024-02-06 06:14] VITALS: BP 137/75; TEMP 98.4; O2SAT 98
[2024-02-06] MEDS ORDERED: METOCLOPRAMIDE HCL 10 MG/2 ML VIAL ONE (06:30)
[2024-02-06] MEDS ORDERED: diphenhydrAMINE HCL 50 MG/ML VIAL ONE (06:30)
[2024-02-06] MEDS ORDERED: ACETAMINOPHEN ES 500 MG TABLET ONE (06:31)
[2024-02-06] MEDS: METOCLOPRAMIDE HCL 10 MG/2 ML VIAL IV ONE (06:55)
[2024-02-06] MEDS: ACETAMINOPHEN ES 500 MG TABLET PO ONE (06:55)
[2024-02-06] MEDS: diphenhydrAMINE HCL 50 MG/ML VIAL IV ONE (06:55)
[2024-02-06] MEDS: IV NS 0.9% 1,000 ML BAG IV ONE (06:55)
[2024-02-06 07:00] LABS: BASOPHILS # (AUTO) 0.1 K/uL (0.0-0.2); BASOPHILS % (AUTO) 0.7 % (0.0-2.0); EOSINOPHILS # (AUTO) 0.4 K/uL (0.0-0.7); EOSINOPHILS % (AUTO) 4.9 % (0.0-6.0); HEMATOCRIT 39 % (33-45); HEMOGLOBIN 13.4 g/dL (11.5-14.8); LYMPHOCYTES # (AUTO) 3.5 K/uL (0.8-4.8); LYMPHOCYTES % (AUTO) 43.4 % (20.0-44.0); MEAN CORPUSCULAR HEMOGLOBIN 34 PG (26.0-33.0); MEAN CORPUSCULAR HGB CONC 35 g/dl (31.0-36.0); MEAN CORPUSCULAR VOLUME 96 fL (82-100); MONOCYTES # (AUTO) 0.9 K/uL (0.1-1.30); MONOCYTES % (AUTO) 11.5 % (2.0-12.0); NEUTROPHILS # (AUTO) 3.2 K/uL (1.8-8.9); NEUTROPHILS % (AUTO) 39.5 % (43.0-81.0); PLATELET COUNT (AUTO) 173 K/uL (150-450); RED CELL DISTRIBUTION WIDTH 13.8 % (11.5-15.0); WHITE BLOOD COUNT (AUTO) 8.1 K/uL (4.3-11.0)
[2024-02-06 07:08] LABS: CALCIUM, SERUM 8.4 mg/dL (8.5-10.1); CREATININE 1.1 mg/dL (0.6-1.3); POTASSIUM 4.7 mmol/L (3.5-5.1)
[2024-02-06] MEDS ORDERED: KETOROLAC TROMETHAMINE 15 MG/ML VIAL ONE (09:31)
[2024-02-06] MEDS: KETOROLAC TROMETHAMINE 15 MG/ML VIAL IV ONE (09:48)
== END 2024-02-06 09:54 | disposition home or self-care (01) ==
LOC: ER 06:03
DX: R51.9 Headache, unspecified (principal); I10 Essential (primary) hypertension; E78.5 Hyperlipidemia, unspecified; E11.9 Type 2 diabetes mellitus without complications; J45.909 Unspecified asthma, uncomplicated; K74.60 Unspecified cirrhosis of liver; F17.200 Nicotine dependence, unspecified, uncomplicated; Z90.49 Acquired absence of other specified parts of digestive tract; Z88.8 Allergy status to other drugs, medicaments and biological substances; Z88.5 Allergy status to narcotic agent; Z90.710 Acquired absence of both cervix and uterus
CPT/HCPCS: 99285; 96374; 70450; 96375; 71045; 96361; 93005; 85025; 80048; 36415; 82962; J1200; J2765; J7030; J1885

== ENCOUNTER 2024-10-01 16:04 | Emergency (ER) | payer MEDICARE, OTHER ==
[~2024-10-01] VITALS: Ht 160 cm; Wt 85.3 kg
[2024-10-01 16:37] LABS: APPEARANCE,URINE CLEAR (CLEAR); BILIRUBIN,URINE NEGATIVE (NEGATIVE); BLOOD, URINE 2+ Ery/uL (NEGATIVE); COLOR,URINE YELLOW (YELLOW); KETONES,URINE NEGATIVE (NEGATIVE); LEUKOCYTE ESTERASE ,URINE 1+ (NEGATIVE); NITRITE, URINE NEGATIVE (NEGATIVE); PH,URINE 6.5 (5.0-8.0); PROTEIN,URINE NEGATIVE (NEGATIVE); UGLUCOSE NEGATIVE (NEGATIVE); UROBILINOGEN,URINE 0.2 EU/dL (0.2)
[2024-10-01 16:59] LABS: ADD URINE CULTURE YES; BACTERIA,URINE 2+ /HPF (None Seen)
[2024-10-01] MEDS ORDERED: ONDANSETRON HCL/PF 4 MG/2 ML VIAL ONE (17:19)
[2024-10-01] MEDS ORDERED: KETOROLAC TROMETHAMINE 15 MG/ML VIAL ONE (17:19)
[2024-10-01 17:21] LABS: BASOPHILS # (AUTO) 0.1 K/uL (0.0-0.2); BASOPHILS % (AUTO) 0.7 % (0.0-2.0); EOSINOPHILS # (AUTO) 0.3 K/uL (0.0-0.7); EOSINOPHILS % (AUTO) 3.4 % (0.0-6.0); HEMATOCRIT 44 % (33-45); HEMOGLOBIN 15.1 g/dL (11.5-14.8); LYMPHOCYTES # (AUTO) 2.4 K/uL (0.8-4.8); LYMPHOCYTES % (AUTO) 32.1 % (20.0-44.0); MEAN CORPUSCULAR HEMOGLOBIN 34 PG (26.0-33.0); MEAN CORPUSCULAR HGB CONC 35 g/dl (31.0-36.0); MEAN CORPUSCULAR VOLUME 99 fL (82-100); MONOCYTES # (AUTO) 0.8 K/uL (0.1-1.30); MONOCYTES % (AUTO) 10.3 % (2.0-12.0); NEUTROPHILS # (AUTO) 4.1 K/uL (1.8-8.9); NEUTROPHILS % (AUTO) 53.5 % (43.0-81.0); PLATELET COUNT (AUTO) 147 K/uL (150-450); RED BLOOD CELL COUNT(AUTO) 4.41 MIL/uL (4.0-5.2); RED CELL DISTRIBUTION WIDTH 14.3 % (11.5-15.0); WHITE BLOOD COUNT (AUTO) 7.6 K/uL (4.3-11.0)
[2024-10-01 17:35] LABS: CALCIUM, SERUM 8.5 mg/dL (8.5-10.1)
[2024-10-01] MEDS: KETOROLAC TROMETHAMINE 15 MG/ML VIAL IV ONE (17:41)
[2024-10-01] MEDS: ONDANSETRON HCL/PF 4 MG/2 ML VIAL IVP ONE (17:42)
[2024-10-01] MEDS ORDERED: CEFP200T14 PO (19:07)
[2024-10-01 19:25] VITALS: BP 135/80; TEMP 98; O2SAT 99
[2024-10-01 19:29] LABS: APPEARANCE,URINE CLEAR (CLEAR); BILIRUBIN,URINE NEGATIVE (NEGATIVE); BLOOD, URINE 1+ Ery/uL (NEGATIVE); COLOR,URINE YELLOW (YELLOW); KETONES,URINE NEGATIVE (NEGATIVE); LEUKOCYTE ESTERASE ,URINE TRACE (NEGATIVE); NITRITE, URINE NEGATIVE (NEGATIVE); PH,URINE 6.5 (5.0-8.0); PROTEIN,URINE NEGATIVE (NEGATIVE); UGLUCOSE NEGATIVE (NEGATIVE)
[2024-10-01 19:48] LABS: ADD URINE CULTURE YES; BACTERIA,URINE 2+ /HPF (None Seen)
== END 2024-10-01 19:26 | disposition home or self-care (01) ==
LOC: ER 16:06
DX: N12 Tubulo-interstitial nephritis, not specified as acute or chronic (principal); E11.9 Type 2 diabetes mellitus without complications; E78.5 Hyperlipidemia, unspecified; F17.200 Nicotine dependence, unspecified, uncomplicated; I10 Essential (primary) hypertension; J45.909 Unspecified asthma, uncomplicated; Z79.1 Long term (current) use of non-steroidal anti-inflammatories (NSAID); Z79.899 Other long term (current) drug therapy; Z87.440 Personal history of urinary (tract) infections; Z88.5 Allergy status to narcotic agent; Z90.49 Acquired absence of other specified parts of digestive tract; Z90.710 Acquired absence of both cervix and uterus; Z87.19 Personal history of other diseases of the digestive system; Z88.8 Allergy status to other drugs, medicaments and biological substances
CPT/HCPCS: 99285; 74176; 96374; 96375; 85025; 80048; 87086; 81001 ×2; 36415; 82962; J1885; J2405; 87186-TC